=== PATIENT | female | born 1985 | race Caucasian/White ===

== ENCOUNTER → 2017-06-10 08:43 | Observation (INO) ==
[2017-06-09 18:13] LABS: Bilirubin,Urine Negative (Negative); Blood,Urine Large (Negative); Clarity,Urine Cloudy (Clear); Color,Urine Dark Yellow (Yellow); Glucose,Urine (UA) Normal (Normal); Ketones,Urine Negative (Negative); Leukocyte Esterase,Urine Large (Negative); Nitrite,Urine Negative (Negative); PH,Urine 7.5 pH Units (5.0-8.0); Protein,Urine 30 mg/dL (Neg-Trace); Specific Gravity,Urine 1.013 (1.010-1.025); Urobilinogen,Urine Normal (Normal)
[2017-06-09 18:17] LABS: Hyaline Casts,Urine None Seen per lpf (None-Few); Squamous Epithelial Cell,Urine Many per lpf (None-Few); WBC,Urine TNTC per hpf (0-3)
[2017-06-09 18:19] LABS: Amphetamine Screen,Urine Negative ng/mL (Cutoff=1000); Barbiturate Screen,Urine Negative ng/mL (Cutoff=200); Benzodiazepines Screen,Urine Negative ng/mL (Cutoff=200); Cannabinoid Screen,Urine Negative ng/mL (Cutoff = 50); Cocaine Screen,Urine Negative ng/mL (Cutoff= 300); Opiate Screen,Urine Negative ng/mL (Cutoff=300); Phencyclidine Screen,Urine Negative ng/mL (Cutoff=25)
--- NOTE | 2017-06-09 18:34 | OB/GYN History & Physical ---
Date of Encounter: 06/09/17 Time of Encounter: 18:23 Assessment and Plan (1) Left flank pain Current visit: Yes Status: Acute Suspect kidney stone U/A showed large amount of blood, protein 30, Leuk esterase large, RBC TNTC, WBC TNTC, many squamous epithelial cells, and many bacteria Sent CBC to determine WBC count ordered US (2) 24 weeks gestation of Current visit: Yes Status: Acute Twin gestation (3) Twin gestation in second trimester Current visit: Yes Status: Acute Qualifiers: Multiple gestation type: dichorionic and diamniotic Qualified Code(s): O30.042 - Twin , dichorionic/diamniotic, second trimester History of Present Illness Chief complaint: back pain HPI: Sadia Knott is a 32 year-old G 3 P 2001 female with twin gestation at 24 weeks and 5 days who presents to labor and delivery for back pain for one day. The pain is mostly on the left thoracolumbar junction and radiates around the flank. The intensity of the pain is 8/10. The quality is stabbing and squeezing. She has a storied history of UTIs and kidney stones, requiring stenting in the past. She admits that this pain is similar to kidney stone she has had in the past. She has been drinking plenty of water and notes increased urinary frequency but no dysuria. Her urine has been cloudy. She additionally admits to fever and chills, as well as nausea. Patient denies vaginal bleeding, contractions, and leakage of fluid. Patient denies vomiting, diarrhea, shortness of breath, chest pain, visual disturbance, LE edema, and upper abdominal pain. She follows with an OB outside of [place]. Past Med Surg Social Fam HX - Past Medical History Medical history: kidney stones Psychiatric history: no psych history - Past Surgical History Surgical History: , other - Social History Smoking Status: Current every day smoker Packs per day: 1 Alcohol use: none Drug use: none - Family History Mother Age: 66 Living Status: Still Living Hx Family Cardiac Disorders: Yes (HTN) Obstetrical History - Pregnancies : 3 Para: 2 Term: 2 : 0 Ab's: 0 Livin Medications and Allergies Vit/Iron Fumarate/FA [ Tablet] 1 each PO DAILY 06/09/17 [ History] 3 Allergy/AdvReac Type Severity Reaction Status Date / Time No Known Allergies Allergy Verified 06/09/17 18:28 Review of System OB - Constitutional Constitutional ROS IM: chills, fever(s), no anorexia - Cardiovascular Cardiovascular: no chest pain, no dyspnea, no edema - Respiratory Respiratory: no dyspnea - Gastrointestinal Gastrointestinal: nausea, no diarrhea, no vomiting - Genitourinary Genitourinary: flank pain, urinary frequency, no dysuria, no hematuria Exam - Constitutional Constitutional: well developed, well nourished, no acute distress, obese - HEENT HEENT: Normocephaly, Mucus Membranes Moist - Neck Neck exam: trachea midline - Lungs Respiratory exam: CTAB - Cardiovascular Cardiovascular exam: RRR, +S1, +S2 - Abdomen Abdomen: Present: bowel sounds normal, gravid, non tender - Extremities Extremities exam: normal inspection Deep Tendon Reflex Grade: 2+ Normal - Uterus Uterus exam: Present: normal size, normal contour Results Result Diagrams: 06/09/17 18:45 All other labs normal. - VTE Reasons for not Prescribing Prophylaxis: Treatment not Indicated - Low risk for VTE - Attending Attestation I examined this patient and my medical decision-making was reviewed with the Resident Physician. I agree with the documented findings, disposition and treatment plan as described except to the extent set forth below.
[2017-06-09 18:53] LABS: Bacteria,Urine Many per hpf (None-Few); RBC,Urine TNTC per hpf (0-3)
[2017-06-09 19:00] LABS: Basophils % 0.2 %; Eosinophils % 0.1 %; Hematocrit 32.5 % (35.3-44.9); Hemoglobin 10.5 g/dL (11.5-15.4); Immature Granulocytes % 0.6 % (0-4); Lymphocytes # 1.4 K/mcL (0.6-4.6); Lymphocytes % 11.1 %; Mean Corpuscular HGB Conc 32.3 g/dL (31.6-35.5); Mean Corpuscular Volume 83.5 fL (83.0-100.0); Mean Platelet Volume 10.3 fL (9.4-12.4); Monocytes # 1.3 K/mcL (0.0-1.3); Monocytes % 10.5 %; Neutrophils # 9.7 K/mcL (1.6-8.9); Platelet Count 215 K/mcL (140-400); Red Blood Count 3.89 M/mcL (3.82-4.97); Red Cell Distribution Width 14.9 % (11.5-14.5); Segmented Neutrophils % 77.5 %
[2017-06-09] MEDS: *HR* HYDROmorphone (PF) 1 MG/ML SYRINGE IVP PRN ×2 (19:50→21:55)
--- NOTE | 2017-06-09 22:35 | OB/GYN Progress Note ---
Date of Encounter: 06/09/17 Time of Encounter: 22:33 - Assessment and Plan (1) Left flank pain Current Visit: Yes Status: Acute Suspect kidney stone U/A showed large amount of blood, protein 30, Leuk esterase large, RBC TNTC, WBC TNTC, many squamous epithelial cells, and many bacteria Sent CBC to determine WBC count ordered US (2) 24 weeks gestation of Current Visit: Yes Status: Acute Twin gestation (3) Twin gestation in second trimester Current Visit: Yes Status: Acute Qualifiers: Multiple gestation type: dichorionic and diamniotic Qualified Code(s): O30.042 - Twin , dichorionic/diamniotic, second trimester Subjective - Subjective Interval history: Patient resting in bed, Patient reports pain is better but still present. We discussed ultrasound results. Will give IV Rocephin and monitor through the night. Plan to discharge home in morning. Patient denies any questions or concerns. Antepartum ROS: movement normal, no loss of fluid, no vaginal bleeding, no contractions Objective - Vital Signs Vital Signs: Intake and Output 06/09/17 06/09/17 06/09/17 07:59 15:59 23:59 Other: Weight 118 kg Patient Weight 06/09/17 23:59 Weight 118 kg - Exam Cervical dilation: closed - Labs Labs: Abnormal lab results WBC 12.5 K/mcL (4.3-11.1) H 06/09/17 18:45 Hgb 10.5 g/dL (11.5-15.4) L 06/09/17 18:45 Hct 32.5 % (35.3-44.9) L 06/09/17 18:45 MCH 27.0 pg (28.0-33.3) L 06/09/17 18:45 RDW 14.9 % (11.5-14.5) H 06/09/17 18:45 Neutrophils # 9.7 K/mcL (1.6-8.9) H 06/09/17 18:45 Urine Clarity Cloudy (Clear) A 06/09/17 17:58 Urine Protein 30 mg/dL (Neg-Trace) H 06/09/17 17:58 Urine Blood Large (Negative) H 06/09/17 17:58 Ur Leukocyte Esterase Large (Negative) H 06/09/17 17:58 Urine Microscopic RBC TNTC per hpf (0-3) H 06/09/17 17:58 Urine Microscopic WBC TNTC per hpf (0-3) H 06/09/17 17:58 Ur Squamous Epith Cells Many per lpf (None-Few) H 06/09/17 17:58 Urine Bacteria Many per hpf (None-Few) H 06/09/17 17:58 Ur Culture Indicated? YES (NO) A 06/09/17 17:58
[2017-06-10] MEDS: *HR* HYDROmorphone (PF) 1 MG/ML SYRINGE IVP PRN (01:07)
--- NOTE | 2017-06-10 07:31 | Discharge Summary ---
Date of Encounter: 06/10/17 Time of Encounter: 07:29 - Discharge Diagnosis (1) Left flank pain Priority: Secondary Status: Acute (2) 24 weeks gestation of Priority: Primary Status: Acute (3) Twin gestation in second trimester Priority: Secondary Status: Acute Qualifiers: Multiple gestation type: dichorionic and diamniotic Qualified Code(s): O30.042 - Twin , dichorionic/diamniotic, second trimester (4) UTI in Priority: Secondary Status: Acute Comments: treated with IV Rocephin will discharge home with Macrobid 100mg fede BID x 7 days. Patient to follow up with primary OB provider in [place], [place] Qualifiers: Trimester: second trimester Qualified Code(s): O23.42 - Unspecified infection of urinary tract in , second trimester - Discharge Medications Prescriptions: Nitrofurantoin (BID) [Macrobid] 100 mg PO BID #14 capsule Home Medications: Vit/Iron Fumarate/FA [ Tablet] 1 each PO DAILY 06/09/17 [ History] Nitrofurantoin (BID) [Macrobid] 100 mg PO BID #14 capsule 06/10/17 [Rx] Allergies/Adverse Reactions: 3 Allergy/AdvReac Type Severity Reaction Status Date / Time No Known Allergies Allergy Verified 06/09/17 18:28 Data Procedures and tests throughout hospitalization: Laboratory Tests 06/09/17 06/09/17 06/09/17 17:58 17:58 18:45 WBC 12.5 H RBC 3.89 Hgb 10.5 L Hct 32.5 L MCV 83.5 MCH 27.0 L MCHC 32.3 RDW 14.9 H Plt Count 215 MPV 10.3 Immature Gran % 0.6 Seg Neutrophils % 77.5 Lymphocytes % 11.1 Monocytes % 10.5 Eosinophils % 0.1 Basophils % 0.2 Neutrophils # 9.7 H Lymphocytes # 1.4 Monocytes # 1.3 Eosinophils # 0.0 Basophils # 0.0 Urine Color Dark Yellow Urine Clarity Cloudy A Urine pH 7.5 Ur Specific [place] 1.013 Urine Protein 30 H Urine Glucose (UA) Normal Urine Ketones Negative Urine Blood Large H Urine Nitrite Negative Urine Bilirubin Negative Urine Urobilinogen Normal Ur Leukocyte Esterase Large H Urine Microscopic RBC TNTC H Urine Microscopic WBC TNTC H Ur Squamous Epith Cells Many H Urine Bacteria Many H Hyaline Casts None Seen Ur Culture Indicated? YES A Urine Opiates Screen Negative Ur Barbiturates Screen Negative Ur Phencyclidine Scrn Negative Ur Amphetamines Screen Negative U Benzodiazepines Scrn Negative Urine Cocaine Screen Negative U Marijuana (THC) Screen Negative Labs on day of discharge: Labs from last 24 hours 06/09/17 06/09/17 06/09/17 18:45 17:58 17:58 WBC 12.5 H RBC 3.89 Hgb 10.5 L Hct 32.5 L MCV 83.5 MCH 27.0 L MCHC 32.3 RDW 14.9 H Plt Count 215 MPV 10.3 Immature Gran % 0.6 Seg Neutrophils % 77.5 Lymphocytes % 11.1 Monocytes % 10.5 Eosinophils % 0.1 Basophils % 0.2 Neutrophils # 9.7 H Lymphocytes # 1.4 Monocytes # 1.3 Eosinophils # 0.0 Basophils # 0.0 Urine Color Dark Yellow Urine Clarity Cloudy A Urine pH 7.5 Ur Specific [place] 1.013 Urine Protein 30 H Urine Glucose (UA) Normal Urine Ketones Negative Urine Blood Large H Urine Nitrite Negative Urine Bilirubin Negative Urine Urobilinogen Normal Ur Leukocyte Esterase Large H Urine Microscopic RBC TNTC H Urine Microscopic WBC TNTC H Ur Squamous Epith Cells Many H Urine Bacteria Many H Hyaline Casts None Seen Ur Culture Indicated? YES A Urine Opiates Screen Negative Ur Barbiturates Screen Negative Ur Phencyclidine Scrn Negative Ur Amphetamines Screen Negative U Benzodiazepines Scrn Negative Urine Cocaine Screen Negative U Marijuana (THC) Screen Negative - Impressions ITS Impressions Retroperitoneum Ultrasound 06/09/17 21:00 IMPRESSION: Unremarkable ultrasound of the kidneys and urinary bladder. 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
[~2017-06-10 08:43] MED LIST: *HR* OxyCODONE/APAP 5/325 TABLET PO PRN; Ringers Solution, Lactated 1,000 ML IVC SCH; Ringers Solution, Lactated 1,000 ML ONE
== END | disposition home or self-care (01) ==
LOC: 1NENULAB
PROVIDERS: ADMIT Obstetrics & Gynecology; ATTEND Obstetrics & Gynecology

== ENCOUNTER → 2017-07-21 03:00 | Observation (INO) ==
[2017-07-21 00:34] LABS: Bilirubin,Urine Negative (Negative); Blood,Urine Negative (Negative); Clarity,Urine Cloudy (Clear); Color,Urine Yellow (Yellow); Glucose,Urine (UA) Normal (Normal); Ketones,Urine Negative (Negative); Leukocyte Esterase,Urine Negative (Negative); Nitrite,Urine Negative (Negative); Protein,Urine Negative (Neg-Trace); Specific Gravity,Urine 1.029 (1.010-1.025); Urobilinogen,Urine Normal (Normal)
[2017-07-21 00:36] LABS: Bacteria,Urine Moderate per hpf (None-Few); RBC,Urine 0-3 per hpf (0-3); Squamous Epithelial Cell,Urine Many per lpf (None-Few); WBC,Urine 15-30 per hpf (0-3)
[2017-07-21 00:40] LABS: Amphetamine Screen,Urine Negative ng/mL (Cutoff=1000); Barbiturate Screen,Urine Negative ng/mL (Cutoff=200); Benzodiazepines Screen,Urine Negative ng/mL (Cutoff=200); Cannabinoid Screen,Urine Negative ng/mL (Cutoff = 50); Cocaine Screen,Urine Negative ng/mL (Cutoff= 300); Opiate Screen,Urine Negative ng/mL (Cutoff=300); Phencyclidine Screen,Urine Negative ng/mL (Cutoff=25)
--- NOTE | 2017-07-21 00:44 | OB/GYN Progress Note ---
Date of Encounter: 07/21/17 Time of Encounter: 00:39 - Assessment and Plan (1) 30 weeks gestation of Current Visit: Yes Status: Acute Patient admitted for observation (2) Twin gestation in second trimester Current Visit: No Status: Acute FHR appropriate for gestational age Qualifiers: Multiple gestation type: dichorionic and diamniotic Qualified Code(s): O30.042 - Twin , dichorionic/diamniotic, second trimester Subjective - Subjective Principal diagnosis: labor evaluation Interval history: Patient is 32 y/o currently 30w5d with EDC of 09/24/2017 with DI/DI twins presents to labor and delivery with complaints of abdominal pain around the belly button and feeling as though she can not completely empty her bladder. Patient states it feels like she has a UTI. Patient reports + FM x2 denies LOF, vaginal bleeding, vaginal itching or burning. Patient sees Dr. Barber for care in [place]. Patient denies any complications with current . Patient has not had steroids or labor. Patient is scheduled for repeat c/s on 09/11/2017. Antepartum ROS: movement normal, no loss of fluid, no vaginal bleeding, no contractions Objective - Vital Signs Vital Signs: Intake and Output 07/20/17 07/20/17 07/21/17 15:59 23:59 07:59 Other: Weight 122.9 kg - Exam FHR: auscultation normal, category 1 FHR comments: FHR A 135 bpm moderate variability +15x15 accels no decels noted. FHR B 145 bpm moderate variability +15x15 accels no decels noted. Auscultation: bilateral: normal Abdomen: Present: normal appearance, soft, gravid Uterus: Present: normal, firm Cervical dilation: closed Cervix effacement: Thick station: -3 Comments: Speculum exam: No pooling, moderate amount of thick white discharge. vaginosis panel collected and sent to lab.
[2017-07-21 00:45] LABS: Hyaline Casts,Urine Few per lpf (None-Few); Mucus,Urine Few (Few); Uric Acid Crystals,Urine Present; Yeast,Urine Few per hpf (None Seen)
[2017-07-21 02:08] LABS: Candida DNA Not Detected (Not Detect); Gardnerella DNA Not Detected (Not Detect); Trichomonas DNA Not Detected (Not Detect)
--- NOTE | 2017-07-21 02:33 | Discharge Summary ---
Date of Encounter: 07/21/17 Time of Encounter: 02:32 - Discharge Diagnosis (1) 30 weeks gestation of Priority: Primary Status: Acute Comments: false labor (2) Twin gestation in second trimester Priority: Secondary Status: Acute Qualifiers: Multiple gestation type: dichorionic and diamniotic Qualified Code(s): O30.042 - Twin , dichorionic/diamniotic, second trimester - Discharge Medications Home Medications: Vit/Iron Fumarate/FA [ Tablet] 1 each PO DAILY 06/09/17 [ History] Allergies/Adverse Reactions: 3 Allergy/AdvReac Type Severity Reaction Status Date / Time No Known Allergies Allergy Verified 07/20/17 23:40 Data Procedures and tests throughout hospitalization: Laboratory Tests 07/20/17 07/20/17 07/21/17 23:55 23:55 01:20 Urine Color Yellow Urine Clarity Cloudy A Urine pH 6.0 Ur Specific [place] 1.029 H Urine Protein Negative Urine Glucose (UA) Normal Urine Ketones Negative Urine Blood Negative Urine Nitrite Negative Urine Bilirubin Negative Urine Urobilinogen Normal Ur Leukocyte Esterase Negative Urine Microscopic RBC 0-3 Urine Microscopic WBC 15-30 H Ur Squamous Epith Cells Many H Uric Acid Crystals Present Urine Bacteria Moderate H Hyaline Casts Few Urine Mucus Few Urine Yeast Few H Ur Culture Indicated? NO Urine Opiates Screen Negative Ur Barbiturates Screen Negative Ur Phencyclidine Scrn Negative Ur Amphetamines Screen Negative U Benzodiazepines Scrn Negative Urine Cocaine Screen Negative U Marijuana (THC) Screen Negative Sharmaine species DNA Not Detected Gardnerella DNA Probe Not Detected Trichomonas DNA Probe Not Detected Labs on day of discharge: Labs from last 24 hours 07/21/17 07/20/17 07/20/17 01:20 23:55 23:55 Urine Color Yellow Urine Clarity Cloudy A Urine pH 6.0 Ur Specific [place] 1.029 H Urine Protein Negative Urine Glucose (UA) Normal Urine Ketones Negative Urine Blood Negative Urine Nitrite Negative Urine Bilirubin Negative Urine Urobilinogen Normal Ur Leukocyte Esterase Negative Urine Microscopic RBC 0-3 Urine Microscopic WBC 15-30 H Ur Squamous Epith Cells Many H Uric Acid Crystals Present Urine Bacteria Moderate H Hyaline Casts Few Urine Mucus Few Urine Yeast Few H Ur Culture Indicated? NO Urine Opiates Screen Negative Ur Barbiturates Screen Negative Ur Phencyclidine Scrn Negative Ur Amphetamines Screen Negative U Benzodiazepines Scrn Negative Urine Cocaine Screen Negative U Marijuana (THC) Screen Negative Sharmaine species DNA Not Detected Gardnerella DNA Probe Not Detected Trichomonas DNA Probe Not Detected Date of admission: 07/20/17 23:15 Discharging clinician: Tamela Garcia Anticipated date of discharge: 07/21/17 - Patient Status Disposition: Home, Self-Care Condition: Good Functional capacity at discharge: independent ambulation - Discharge Instructions - Diet and Activity Activity: increase activity as tolerated Diet: regular diet 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
== END | disposition home or self-care (01) ==
LOC: 1NENULAB
PROVIDERS: ADMIT Advanced Practice Midwife; ATTEND Advanced Practice Midwife